=== PATIENT | female | born 1980 | race Caucasian/White ===

== ENCOUNTER 2016-12-16 15:11 | Emergency (ER) | payer OTHER ==
[~2016-12-16] VITALS: Wt 63.0 kg
[2016-12-16] MEDS ORDERED: morphine 2 MG INJ IV STA (15:33)
[2016-12-16] MEDS ORDERED: FAMOTIDINE 20 MG INJ IV STA (15:33)
[2016-12-16] MEDS ORDERED: ONDANSETRON 4 MG INJ IV STA (15:33)
--- NOTE | 2016-12-16 16:11 | RADRPT ---
PROCEDURE: US Abdomen (right upper quadrant). CLINICAL INDICATION: Right upper quadrant abdomen pain. TECHNIQUE: Multiple real-time longitudinal and transverse images of the right upper quadrant of th e abdomen were acquired utilizing a curved array transducer. Images were reviewed on a high-resoluti on PACS workstation. COMPARISON: None FINDINGS: The liver is normal in size and echogenicity. There is no focal hepatic lesion. Color Doppler and pulsed Doppler sonography demonstrate normal a ntegrade flow in the portal vein. The gallbladder is contracted but otherwise normal. There are no gallstones and there is no fluid a round the gallbladder. The bile ducts are normal with the common bile duct measuring 2.6 mm in diameter. The visualized portions of the pancreas are unremarkable with obscuration of the tail of the pancrea s. No free fluid is present. The right kidney measures 2.6 cm. There is normal echogenicity of the right kidney. There is no p erinephric fluid collection. No hydronephrosis, mass, or calculus is seen. IMPRESSION: 1. Contracted gallbladder. 2. Otherwise normal right upper quadrant abdomen pain. RPTAT: QQ .Mykel William MD, Date Time Electronically viewed and signed by .Mykel William MD, on 12/16/2016 16:11 .R/
[2016-12-16 16:31] LABS: ADD UMIC YES; URINE BILIRUBIN (Dip) NEGATIVE (NEGATIVE); URINE BLOOD (Dip) 3+ (NEGATIVE); URINE COLOR LT. YELLOW (YELLOW); URINE GLUCOSE (Dip) NEGATIVE (NEGATIVE); URINE KETONES (Dip) NEGATIVE (NEGATIVE); URINE LEUKOCYTE ESTERASE (Dip) NEGATIVE (NEGATIVE); URINE NITRITE (Dip) NEGATIVE (NEGATIVE); URINE TOTAL PROTEIN (Dip) NEGATIVE (NEGATIVE); URINE UROBILINOGEN (Dip) 0.2 E.U./dL (0.1-1.0)
[2016-12-16 16:34] LABS: ADD SCAN DIFF NO
[2016-12-16 16:36] LABS: BASOPHILS % 0.3 % (0.0-2.0); EOSINOPHILS # 0.1 10^3/ul (0.0-0.5); EOSINOPHILS % 1.6 % (0.0-7.0); HEMATOCRIT 34.5 % (37.0-47.0); HEMOGLOBIN 11.9 g/dl (12.0-16.0); LYMPHOCYTES # 3.5 10^3/ul (0.8-2.9); LYMPHOCYTES % 39.8 % (15.0-51.0); MEAN CORPUSCULAR HEMOGLOBIN 30.6 pg (29.0-33.0); MEAN CORPUSCULAR HGB CONC 34.5 g/dl (32.0-37.0); MEAN CORPUSCULAR VOLUME 88.7 fl (82.0-101.0); MEAN PLATELET VOLUME 10.7 fl (7.4-10.4); MONOCYTE # 0.5 10^3/ul (0.3-0.9); MONOCYTES % 5.1 % (0.0-11.0); NEUTROPHIL # 4.7 10^3/ul (1.6-7.5); PLATELET COUNT 215 10^3/UL (140-415); RED BLOOD COUNT 3.89 10^6/ul (4.20-5.40); RED CELL DISTRIBUTION WIDTH 13.1 % (11.5-14.5); WHITE BLOOD COUNT 8.9 10^3/ul (4.8-10.8)
[2016-12-16 16:37] LABS: SQUAMOUS EPITHELIAL CELL,UR FEW; URINE RBCS >200 /HPF (0)
[2016-12-16 16:49] LABS: ALBUMIN 4.6 g/dl (3.3-4.9); ALBUMIN/GLOBULIN RATIO 1.27; BILIRUBIN,INDIRECT 0.1 mg/dl (0-1.1); BILIRUBIN,TOTAL 0.1 mg/dl (0.2-1.3); CALCIUM 9.5 mg/dl (8.4-10.2); CREATININE 0.66 mg/dl (0.44-1.00); POTASSIUM 4.2 mmol/L (3.5-5.1); TOTAL PROTEIN 8.2 g/dl (6.1-8.1)
--- NOTE | 2016-12-16 17:04 | RADRPT ---
PROCEDURE: XR Chest. CLINICAL INDICATION: Chest and abdomen pain. TECHNIQUE: Single frontal view. COMPARISON: None. FINDINGS: The lungs are clear. The heart size is normal. There is no pleural effusion. There is no pneumothorax. IMPRESSION: 1. Normal chest radiograph. RPTAT: QQ .Mykel William MD, MD Date Time Electronically viewed and signed by .Mykel William MD, on 12/16/2016 17:04 .R/
[2016-12-16] MEDS ORDERED: PANT40TA3 PO (17:21)
[2016-12-16] MEDS ORDERED: TRAM50TA2 PO (17:21)
--- NOTE | 2016-12-16 17:23 | ERD ---
ER Documentation Chief Complaint Date/Time DATE: 12/16/16 TIME: 17:21 Chief Complaint ruq pain HPI This 36-year-old female presents with approximately 2 week history of pain in the epigastric or right upper quadrant area patient has a nausea vomiting, fevers there is no relation to food. She denies any lower abdominal pain, dysuria, additional symptoms. She has any shortness of breath chest pain. ROS All systems reviewed and are negative except as per history of present illness. Medications Home Meds Active Scripts Tramadol HCl (Tramadol HCl) 50 Mg Tablet, 50 MG PO Q4 Y for PAIN, #15 TAB Prov:WILLIE MATTHEWS MD 12/16/16 Pantoprazole* (Protonix*) 40 Mg Tablet.dr, 40 MG PO DAILY, #20 TAB Prov:WILLIE MATTHEWS MD 12/16/16 Allergies Allergies: Coded Allergies: No Known Allergy (Unverified , 10/26/13) PMhx/Soc History of Surgery: Yes (2 C SECTIONS) Anesthesia Reaction: No Hx Neurological Disorder: No Hx Respiratory Disorders: No Hx Cardiac Disorders: No Hx Psychiatric Problems: No Hx Miscellaneous Medical Probl: No Hx Alcohol Use: No Hx Substance Use: No Hx Tobacco Use: No Physical Exam Vitals Vital Signs Date Time Temp Pulse Resp B/P Pulse Ox O2 Delivery O2 Flow Rate FiO2 12/16/16 15:13 99.1 88 20 126/80 99 Physical Exam Const: [] Head: Atraumatic Eyes: Normal Conjunctiva ENT: Normal External Ears, Nose and Mouth. Neck: Full range of motion..~ No meningismus. Resp: Clear to auscultation bilaterally Cardio: Regular rate and rhythm, no murmurs Abd: Soft, non tender, non distended. Normal bowel sounds Skin: No petechiae or rashes Back: No midline or flank tenderness Ext: No cyanosis, or edema Neur: Awake and alert Psych: Normal Mood and Affect Result Diagram: 12/16/16 1630 12/16/16 1630 Results 24 hrs Laboratory Tests Test 12/16/16 16:00 12/16/16 16:30 Urine Color LT. YELLOW Urine Clarity SLIGHTLY CLOUDY Urine pH 7.0 Urine Specific [place] <=1.005 Urine Ketones NEGATIVE Urine Nitrite NEGATIVE Urine Bilirubin NEGATIVE Urine Urobilinogen 0.2 E.U./dL Urine Leukocyte Esterase NEGATIVE Urine Microscopic RBC >200/HPF Urine Microscopic WBC 0-2/HPF Urine Squamous Epithelial Cells FEW Urine Hemoglobin 3+ Urine Glucose NEGATIVE% Urine Total Protein NEGATIVE White Blood Count 8.910^3/ul Red Blood Count 3.8910^6/ul Hemoglobin 11.9g/dl Hematocrit 34.5% Mean Corpuscular Volume 88.7fl Mean Corpuscular Hemoglobin 30.6pg Mean Corpuscular Hemoglobin Concent 34.5g/dl Red Cell Distribution Width 13.1% Platelet Count 93086^3/UL Mean Platelet Volume 10.7fl Neutrophils % 53.0% Lymphocytes % 39.8% Monocytes % 5.1% Eosinophils % 1.6% Basophils % 0.3% Nucleated Red Blood Cells % 0.0/100WBC Neutrophils # 4.710^3/ul Lymphocytes # 3.510^3/ul Monocytes # 0.510^3/ul Eosinophils # 0.110^3/ul Basophils # 0.010^3/ul Nucleated Red Blood Cells # 0.010^3/ul Sodium Level 138mmol/L Potassium Level 4.2mmol/L Chloride Level 103mmol/L Carbon Dioxide Level 25mmol/L Anion Gap 14 Blood Urea Nitrogen 12mg/dl Creatinine 0.66mg/dl Glucose Level 83mg/dl Calcium Level 9.5mg/dl Total Bilirubin 0.1mg/dl Direct Bilirubin 0.00mg/dl Indirect Bilirubin 0.1mg/dl Aspartate Amino Transf (AST/SGOT) 23IU/L Alanine Aminotransferase (ALT/SGPT) 28IU/L Alkaline Phosphatase 57IU/L Total Protein 8.2g/dl Albumin 4.6g/dl Globulin 3.60g/dl Albumin/Globulin Ratio 1.27 Lipase 251U/L Current Medications Medications (Trade) Dose Ordered Sig/Kulwinder Route PRN Reason Start Time Stop Time Status Last Admin Dose Admin Morphine Sulfate (morphine) 2 mg ONCE STAT IV 12/16/16 15:33 12/16/16 15:35 DC Ondansetron HCl (Zofran Inj) 4 mg ONCE STAT IV 12/16/16 15:33 12/16/16 15:35 DC 12/16/16 16:28 Famotidine (Pepcid Iv) 20 mg ONCE STAT IV 12/16/16 15:33 12/16/16 15:35 DC 12/16/16 16:28 Procedures/MDM CBC shows no acute abnormalities. CMP and lipase is normal. There is slight anemia. right upper quadrant ultrasound shows contracted gallbladder but no signs of cholecystitis or obstruction. Chest X-ray 1V Interpreted by me: Soft Tissue: No acute abnormalities Bones: No acute abnormalities Mediastinum/Cardiac Silhouette/Lungs: [No acute abnormalities]. Impression- normal 1 view chest x-ray Patient was given morphine 2 mg IV and Zofran 4 mg IV as well as Pepcid 20 mg IV. Patient presents with epigastric or mid abdominal pain of uncertain etiology for 2 weeks. There is no signs or symptoms of hepatobiliary disease, appendicitis, cardiopulmonary etiology. She will be treated for gastritis with Protonix and tramadol and instructions to recheck for fevers, vomiting, chest pain, new worsening symptoms or primary care doctor this week . The patient was stable with no new complaints during the ER course. Clinically, there is no current evidence to suggest meningitis, sepsis, acute abdomen, pneumonia, acute coronary syndrome, pulmonary embolism, or any other emergent condition appearing to require further evaluation or hospitalization. The patient should certainly return for any new or worsening symptoms per the aftercare instructions. They should otherwise follow-up with her primary care doctor for reevaluation this week. Departure Diagnosis: Primary Impression: Abdominal pain Abdominal location: upper abdomen, unspecified Qualified Code: R10.10 - Pain of upper abdomen Patient Instructions: Abdominal Pain Additional Instructions: All examinations normal today. May be gastritis and we will treat for this. Recheck for fevers, vomiting, new worsening symptoms with primary care doctor. WILLIE MATTHEWS MD Dec 16, 2016 17:23
== END 2016-12-16 17:42 | disposition home or self-care (01) ==
LOC: FTE 15:11
DX: R10.11 Right upper quadrant pain (principal)
CPT/HCPCS: 71010; 76705; 80053; 81001; 83690; 85025; J2405; Z7610; 36415; 81003; 96374; 96375; J2270